=== PATIENT | female | born 1995 | race Caucasian/White ===

== ENCOUNTER 2024-05-23 16:01 | Emergency (ER) | payer OTHER ==
[2024-05-23] MEDS ORDERED: Famotidine 20 MG TAB ONE (16:22)
[2024-05-23] MEDS ORDERED: Dexamethasone 10 MG/ML VIAL ONE (16:22)
== END 2024-05-23 17:10 | disposition home or self-care (01) ==
LOC: ERS 16:01
DX: T63.421A Toxic effect of venom of ants, accidental (unintentional), initial encounter (principal)
CPT/HCPCS: 71045; 93005; J1100